=== PATIENT | female | born 1950 | race Caucasian/White ===

== ENCOUNTER 2017-03-16 07:00 | Inpatient (IN) | payer OTHER ==
[~2017-03-16] VITALS: Ht 160 cm; Wt 66.7 kg
[~2017-03-16 07:00] MED LIST: FOLIC ACID1 MG; NEURONTIN800 MG PO; PLAVIX75 MG; SYNTHROID75 MCG; TOPAMAX25 MG; XANAX1 MG PO
== END 2017-03-18 14:31 | DRG 470 ==
LOC: SURH 07:00 → O/R 07:00 → SURH 11:48
PROVIDERS: Orthopaedic Surgery
PROC: 0SRC0J9 Replacement of Right Knee Joint with Synthetic Substitute, Cemented, Open Approach (ICD-10-PCS; principal; 2017-03-16 07:00)
DX: M17.11 Unilateral primary osteoarthritis, right knee (principal); D62 Acute posthemorrhagic anemia; E03.8 Other specified hypothyroidism; M79.7 Fibromyalgia; F41.8 Other specified anxiety disorders; Z86.73 Personal history of transient ischemic attack (TIA), and cerebral infarction without residual deficits

== ENCOUNTER 2017-08-03 07:51 | Day surgery (SDC) | payer OTHER ==
[~2017-08-03 07:51] MED LIST changes: +LIRICA PO; +NORFLEX PO; +SYNTHROID50 MCG PO; +ZYRTEC10 M3 PO
[2017-08-03] MEDS ORDERED: PERCOCET 5-3251 EACH PO (15:53)
[2017-08-03] MEDS ORDERED: GABAPENTIN100 MG PO (15:54)
[2017-08-03] MEDS ORDERED: NORFLEX100MG PO (15:54)
== END 2017-08-03 16:35 | disposition home or self-care (01) ==
LOC: CIR.AMB 07:51
DX: T84.89XA Other specified complication of internal orthopedic prosthetic devices, implants and grafts, initial encounter (principal); D62 Acute posthemorrhagic anemia; M17.11 Unilateral primary osteoarthritis, right knee; E03.8 Other specified hypothyroidism; Z96.651 Presence of right artificial knee joint

== ENCOUNTER 2017-11-24 07:00 | Inpatient (IN) | payer OTHER ==
[~2017-11-24] VITALS: Ht 160 cm; Wt 61.7 kg
[~2017-11-24 07:00] MED LIST changes: +GABAPENTIN100 MG PO; +NORFLEX100MG PO; +PERCOCET 5-3251 EACH PO
== END 2017-12-02 17:08 | DRG 467 ==
LOC: EDSTATUS 07:00 → ADM 07:00 → SURH 11-30 07:00 → O/R 11-30 11:21 → SURH 11-30 11:21
PROVIDERS: Orthopaedic Surgery
PROC: 0SRC0J9 Replacement of Right Knee Joint with Synthetic Substitute, Cemented, Open Approach (ICD-10-PCS; 2017-11-30)
PROC: 0LNQ0ZZ Release Right Knee Tendon, Open Approach (ICD-10-PCS; 2017-11-30)
PROC: 0SBC0ZZ Excision of Right Knee Joint, Open Approach (ICD-10-PCS; 2017-11-30)
PROC: 0SPC0JZ Removal of Synthetic Substitute from Right Knee Joint, Open Approach (ICD-10-PCS; principal; 2017-11-30 14:30)
DX: M17.11 Unilateral primary osteoarthritis, right knee (principal); D62 Acute posthemorrhagic anemia; M24.661 Ankylosis, right knee; E03.8 Other specified hypothyroidism; M79.7 Fibromyalgia; F41.8 Other specified anxiety disorders; Z86.73 Personal history of transient ischemic attack (TIA), and cerebral infarction without residual deficits

== ENCOUNTER 2018-12-05 07:37 | Outpatient (CLI) | payer OTHER | END 2018-12-07 10:48 | disposition home or self-care (01) | LOC: RAD 07:37 | DX: M17.12 Unilateral primary osteoarthritis, left knee (principal); Z96.651 Presence of right artificial knee joint; I11.9 Hypertensive heart disease without heart failure ==

== ENCOUNTER 2022-07-06 10:07 | Outpatient (CLI) | payer OTHER | END 2022-07-06 10:10 | disposition home or self-care (01) | LOC: SONOGRAMA 10:07 | PROVIDERS: ATTEND Pathology Anatomic Pathology | DX: E04.2 Nontoxic multinodular goiter (principal) ==